=== PATIENT | male | born 1980 | race American Indian/Alaskan Native ===

== ENCOUNTER 2017-06-20 10:37 | Emergency (ER) | payer OTHER, BC ==
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
[2017-06-20 11:47] VITALS: BP 112/78
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
--- NOTE | 2017-06-20 14:09 | XRay Report ---
Chest 2 views: History: Pain. Findings: Normal cardiomediastinal silhouette. Trachea is midline. No consolidation, pneumothorax or pleural effusion. Impression: No acute cardiopulmonary findings.
== END 2017-06-20 13:43 | disposition home or self-care (01) ==
LOC: ED 10:37
DX: S16.1XXA Strain of muscle, fascia and tendon at neck level, initial encounter (principal); S39.012A Strain of muscle, fascia and tendon of lower back, initial encounter; V49.49XA Driver injured in collision with other motor vehicles in traffic accident, initial encounter; Y93.89 Activity, other specified; Y92.89 Other specified places as the place of occurrence of the external cause; Y99.8 Other external cause status
CPT/HCPCS: 71020

== ENCOUNTER 2019-08-20 11:49 | Emergency (ER) | payer SELFPAY ==
[2019-08-20 12:18] VITALS: BP 126/75
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
--- NOTE | 2019-08-20 13:11 | XRay Report ---
LUMBAR SPINE 3 VIEWS INDICATION: Low back pain after fall from roof. COMPARISON: No relevant prior imaging study available. FINDINGS: Lumbar vertebral body height and disc space height is maintained. Alignment is normal. There is no SI joint diastases. No acute, displaced fracture is seen. IMPRESSION: 1. No acute findings. RIGHT ELBOW 3 VIEWS INDICATION: Right elbow pain after fall from roof. COMPARISON: No relevant prior imaging study available. FINDINGS: There is laceration injury along the posterior aspect of the elbow superficial to the olecranon. No r adiodense foreign bodies in the soft tissues. No acute fracture or dislocation. No joint effusion. Th ere is calcification/ossification in the common extensor tendon consistent with calcific tendinitis. IMPRESSION: 1. No acute fracture or dislocation is seen. RIGHT WRIST 3 VIEWS INDICATION: WRIST SWELLING AND PAIN. COMPARISON: No relevant prior imaging study available. FINDINGS: No acute, displaced fracture or dislocation is seen. No focal soft tissue swelling or foreign bodies. IMPRESSION: 1. No acute findings. Signer Name: Chris Holliady MD Signed: 08/20/2019 1:07 PM Workstation Name: [id number]
[2019-08-20] MEDS ORDERED: LET TOPICAL (LIDOCAINE/EPINEPHRINE/TETRACAINE) 3 ML TP ONE (15:06)
[2019-08-20] MEDS ORDERED: IBUPROFEN 800 MG TAB PO ONE (15:06)
[2019-08-20] MEDS ORDERED: SODIUM CHLORIDE 0.9% IRR 500 ML BOTTLE IR ONE (15:06)
[2019-08-20] MEDS ORDERED: ceFAZolin 1 GM VIAL IM ONE (15:06)
--- NOTE | 2019-08-20 15:09 | Emergency Department Report ---
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 no loc. witnessed. co r elbow and wrist pain. as well as right hip pain ambulatory to ER MD Complaint: fall -: Sudden, days(s) When Fall Occurred: 24 hours [employer]PER[employer]ING[employer] Fall Witnessed: yes, by family Place Fall Occurred: home Loss of Consciousness: none Prolonged Down Time?: no Symptoms Prior to Fall: none Location - Extremities: Right: Elbow, Hand, Leg Severity: moderate Associated Symptoms: denies - Related Data Previous Rx's Medication Instructions Recorded Last Taken Type Ibuprofen [Motrin] 800 mg PO Q8HR PRN #30 tablet 08/20/19 Unknown Rx cephALEXin [Keflex] 500 mg PO Q12HR #20 cap 08/20/19 Unknown Rx Allergies Allergy/AdvReac Type Severity Reaction Status Date / Time No Known Allergies Allergy Unverified 06/20/17 11:44 ED Review of Systems ROS: Stated complaint: RT ELBOW INFECTED/PAIN Other details as noted in HPI Comment: All other systems reviewed and negative ED Past Medical Hx - Past Medical History Previous Medical History?: No - Surgical History Past Surgical History?: No - Family History Family history: no significant - Social History Smoking Status: Never Smoker Substance Use Type: None - Medications Home Medications: Home Medications Medication Instructions Recorded Confirmed Last Taken Type Ibuprofen [Motrin] 800 mg PO Q8HR PRN #30 tablet 08/20/19 Unknown Rx cephALEXin [Keflex] 500 mg PO Q12HR #20 cap 08/20/19 Unknown Rx ED Physical Exam - General Limitations: No Limitations General appearance: alert, in no apparent distress - Head Head exam: Present: atraumatic, normocephalic - Eye Eye exam: Present: normal appearance - ENT ENT exam: Present: mucous membranes moist - Neck Neck exam: Present: normal inspection - Respiratory Respiratory exam: Present: normal lung sounds bilaterally. Absent: respiratory distress - Cardiovascular Cardiovascular Exam: Present: regular rate, normal rhythm. Absent: systolic murmur, diastolic murmur, rubs, gallop - GI/Abdominal GI/Abdominal exam: Present: soft, normal bowel sounds - Rectal Rectal exam: Present: deferred - Extremities Exam Extremities exam: Present: normal inspection - Expanded Upper Extremity Exam Right Shoulder Exam: Present: normal inspection Upper Arm exam: Present: normal inspection Elbow exam: Present: tenderness, swelling, abrasion Forearm Wrist exam: Present: tenderness Hand Wrist exam: Present: normal inspection - Expanded Lower Extremity Exam Right Hip exam: Present: normal inspection Upper Leg exam: Present: normal inspection Knee exam: Present: normal inspection Lower Leg exam: Present: normal inspection - Back Exam Back exam: Present: normal inspection - Neurological Exam Neurological exam: Present: alert, oriented X3 - Psychiatric Psychiatric exam: Present: normal affect, normal mood - Skin Skin exam: Present: warm, dry, normal color, other (abrasion 1 inch over the r elbow. ). Absent: rash ED Course Vital Signs 08/20/19 08/20/19 12:09 15:26 Temperature 98.6 F Pulse Rate 84 Respiratory 18 18 Rate Blood Pressure 126/75 O2 Sat by Pulse 99 Oximetry ED Medical Decision Making - Radiology Data Radiology results: report reviewed, image reviewed - Medical Decision Making wound cleaned and dressed sling ancef IM given over joint tdap utd xrays neg dc home with family and dc plan of care. Vital Signs 08/20/19 08/20/19 12:09 15:26 Temperature 98.6 F Pulse Rate 84 Respiratory 18 18 Rate Blood Pressure 126/75 O2 Sat by Pulse 99 Oximetry - Differential Diagnosis ro fx Critical care attestation.: If time is entered above; I have spent that time in minutes in the direct care of this critically ill patient, excluding procedure time. ED Disposition Clinical Impression: Fall, Contusion, Abrasion Disposition: DC-01 TO HOME OR SELFCARE Is pt being admited?: No Does the pt Need Aspirin: No Condition: Stable Instructions: Contusion in Adults (ED) Additional Instructions: keep wound clean and dry; keep covered sling for a few days for comfort ice packs will help with pain if pain persists see ortho MD referral below meds as ordered Prescriptions: cephALEXin [Keflex] 500 mg PO Q12HR #20 cap Ibuprofen [Motrin] 800 mg PO Q8HR PRN #30 tablet PRN Reason: Pain, Moderate (4-6) Referrals: POPPY TREVIZO MD [Staff Physician] - 3-5 Days Time of Disposition: 15:08
[2019-08-20] MEDS ORDERED: NEOMY 3.5 MG/BACIT 400 UNITS/POLY B 5000 UNITS/GM OINT PACKET TP ONE (15:28)
== END 2019-08-20 15:20 | disposition home or self-care (01) ==
LOC: ED 11:49
DX: S50.311A Abrasion of right elbow, initial encounter (principal); M25.531 Pain in right wrist; M25.551 Pain in right hip; W17.89XA Other fall from one level to another, initial encounter; Y93.89 Activity, other specified; Y92.89 Other specified places as the place of occurrence of the external cause; Y99.8 Other external cause status
CPT/HCPCS: 72100; 73080; 73110; 96372; 99284; J0690; A6250